=== PATIENT | female | born 1980 | race Caucasian/White ===

== ENCOUNTER 2019-10-07 12:08 | Observation (INO) | payer BC, MEDICAID, SELFPAY ==
[2019-10-07] VITALS (27 sets, daily range): BP systolic 123–125; BP diastolic 79–83; PULSE 72–92; TEMP 36.8; O2SAT 95–100
[2019-10-07 13:17] LABS: Add Urine Microscopic? NO; Appearance Urine Clear (Clear); Bilirubin Urine Negative (Negative); Blood Urine Negative (Negative); Color Urine Yellow (Yellow); Glucose Urine UA Negative (Negative); Ketones Urine Negative (Negative); Leukocyte Esterase Ur Negative LEU/UL (Negative); Nitrate Urine Negative (Negative); Protein Urine Negative (Negative); Specific Grav Ur 1.006 (1.001-1.035); Urobilinogen Urine Negative mg/dL (<2.0)
--- NOTE | 2019-10-07 15:39 | PM.OBTRLD ---
OB - Triage/Final Diagnosis Visit Information Date of evaluation: 10/07/19 Reason for evaluation: decreased movement Evaluation Baseline heart rate: 140 Variability: Moderate (11-25) monitor accelerations: Present monitor decelerations: None Cervical dilation (cm): 3 Laboratory results: Laboratory Tests 10/07/19 13:08 Urine Color Yellow Urine Appearance Clear Urine pH 7.0 Ur Specific [place] 1.006 Urine Protein Negative Urine Glucose (UA) Negative Urine Ketones Negative Ur Blood (Man) Negative Urine Nitrate Negative Urine Bilirubin Negative Urine Urobilinogen Negative Leukocyte Esterase Rfl Negative Vital signs: Vital Signs - 24 hr 10/07/19 12:32 10/07/19 12:34 10/07/19 12:39 Pulse Rate 85 Blood Pressure 124/83 Pulse Oximetry 96 97 10/07/19 12:44 10/07/19 12:49 10/07/19 12:54 Pulse Rate Blood Pressure Pulse Oximetry 95 96 97 10/07/19 12:59 10/07/19 13:00 10/07/19 13:04 Pulse Rate 85 Blood Pressure 124/83 Pulse Oximetry 99 99 10/07/19 13:09 10/07/19 13:14 10/07/19 13:19 Pulse Rate Blood Pressure Pulse Oximetry 99 98 99 10/07/19 13:24 10/07/19 13:29 10/07/19 13:30 Pulse Rate 72 Blood Pressure 125/79 Pulse Oximetry 99 99 10/07/19 13:34 10/07/19 13:39 10/07/19 13:44 Pulse Rate Blood Pressure Pulse Oximetry 100 99 99 10/07/19 13:49 10/07/19 13:54 10/07/19 13:59 Pulse Rate Blood Pressure Pulse Oximetry 98 99 98 10/07/19 14:00 10/07/19 14:04 10/07/19 14:09 Pulse Rate 73 Blood Pressure 123/81 Pulse Oximetry 100 99 10/07/19 14:14 10/07/19 14:19 Pulse Rate Blood Pressure Pulse Oximetry 98 99
--- NOTE | 2019-10-07 15:51 | OBADM ---
This patient, Violet Serrano, admitted to the OB room OB Post 116 for observation. Patient/family oriented to hospital policies and general routines including ID bracelet, bed and alarms, visiting hours, pain management, procedures, bathroom and other care routines, personal items, smoking policy, room service/diet, and visiting hours. Patient/Family are encouraged to report perceived risks to care and to ask questions if they do not understand what they are told or what they should do.
== END 2019-10-07 15:53 | disposition home or self-care (01) ==
PROVIDERS: Admitting Provider Student in an Organized Health Care Education/Training Program; PCP Family Medicine; Visit Provider Student in an Organized Health Care Education/Training Program
DX: O36.8190 Decreased fetal movements, unspecified trimester, not applicable or unspecified (principal); Z3A.00 Weeks of gestation of pregnancy not specified
CPT/HCPCS: 81003; G0378; G0379

== ENCOUNTER 2019-10-18 06:18 | Inpatient (IN) | payer BC, SELFPAY ==
[2019-10-18] VITALS (61 sets, daily range): BP systolic 100–163; BP diastolic 61–136; PULSE 30–195; RESP 16; TEMP 36.8–37.3; O2SAT 81–100; BMI 30.2
[2019-10-18 06:55] LABS: Basophils Percent Auto 0.6 % (0.2-1.2); Eosinophils Percent Auto 0.6 % (0-4.4); Hematocrit 35.4 % (37.0-47.0); Hemoglobin 11.6 g/dL (12.0-15.0); Immature Granulocyte Absolute 0.03 K/mm3 (0.00-0.031); Immature Granulocyte Percent A 0.4 % (0-0.5); Lymphocytes Absolute Auto 1.87 K/mm3 (0.9-3.2); Lymphocytes Percent Auto 26.6 % (18.3-44.2); Mean Corpuscular HGB Conc 32.8 g/dl (32-36); Mean Corpuscular Hemoglobin 27.2 pg (26-34); Mean Corpuscular Volume 83.1 fl (80-100); Mean Platelet Volume 12.1 fl (7.4-10.4); Monocytes Absolute Auto 0.5 K/mm3 (0.1-0.6); Monocytes Percent Auto 7.4 % (2.6-8.5); Neutrophils Absolute Auto 4.5 K/mm3 (1.3-6.7); Neutrophils Percent Auto 64.4 % (45.5-73.1); Platelet Count Result 187 k/mm3 (150-375); Red Blood Count 4.26 M/mm3 (4.2-5.4); Red Cell Distribution Width 12.9 % (11.5-14.5)
--- NOTE | 2019-10-18 07:06 | WPDHPUPDATE1 ---
History and Physical Update Update Date/Time: 10/18/19 07:06 39 yo at 39w3d who presents for elective induction. She denies any contractions, leakage of fluid or vaginal bleeding. She endorses good movement. History and Physical has been reviewed, including an updated exam of the patient. There are NO changes in the patient's condition. Risks, benefits, and alternatives have been discussed and questions answered. Patient agrees to proceed with procedure. A/P 39 yo at 39w3d who presents for elective induction admit to L&D routine admission orders Rh + GBS +, PCN in labor FHT cat 1 continuous EFM plan for pitocin induction
[2019-10-18] MEDS: LACTATED RINGERS 1,000 ML 125 ML IV CONT ×2 (07:14→12:31)
[2019-10-18] MEDS: OXYTOCIN 30 UNITS/NS 500 ML 30 UNITS/500 ML BAG IV CONT ×2 (07:15→15:14)
[2019-10-18] MEDS: AMPICILLIN 2 GM/NS 100 ML 2 GM/100 ML BAG IVPB (07:15)
[2019-10-18 07:56] LABS: Rapid Plasma Reagin Non-Reactive (NonReactive)
--- NOTE | 2019-10-18 08:53 | LDADM ---
This patient, Violet Serrano, was admitted to Labor/Delivery/Recovery 107 on 10/18/19 at 06:18. Plans for labor, pain management and were discussed with patient. Patient/family oriented to hospital policies and general routines including ID bracelet, bed and alarms, visiting hours, pain management, procedures, bathroom and other care routines, personal items, smoking policy, room service/diet and guest tray routines, security routines, and visiting hours. Patient/Family are encouraged to report perceived risks to care and to ask questions if they do not understand what they are told or what they should do. See OBIX for further documentation.
--- NOTE | 2019-10-18 10:43 | PM.OBPNLAB ---
Pain Control Date/time seen: 10/18/19 10:43 Pain control: tolerating well Pelvic Exam Dilation (cm): 2 Effacement (%): 70 station: -3 Amniotic membrane status: Ruptured (clear fluid) Contractions Monitor mode: External Contraction frequency: 3 Contraction pattern: Regular Status status: Category l Assessment and Plan Pitocin rate (mU/min): 14 Assessment: induction ongoing Plan: continuous present management
--- NOTE | 2019-10-18 10:57 | WPDANESEPP ---
Anes - Eval Pre Procedure Procedure: Labor Pain Management Date/Time: 10/18/19 10:57 Surgeon: Aldo Yuen MD Preop Diagnosis: Pain During Labor Pre Op Diagnosis: Induction of labor Patient Data Age: 39 Gender: F Height: 5 ft 10 in Weight: 95.5 kg Last Vital Signs Temp 98.6 F 10/18/19 10:33 Pulse 66 10/18/19 10:46 BP 131/77 10/18/19 10:46 Allergies Allergy/AdvReac Type Severity Reaction Status Date / Time No Known Allergies Allergy Verified 10/07/19 16:04 Home Medications Medication Instructions Recorded Confirmed Type ergocalciferol (vitamin D2) 50,000 unit PO WEEKLY 10/07/19 10/07/19 History [Vitamin D2] sertraline 25 mg PO DAILY 10/07/19 10/07/19 History Laboratory Tests 10/18/19 10/18/19 10/18/19 06:48 06:48 06:48 WBC 7.0 K/mm3 K/mm3 (4.5-10.0) RBC 4.26 M/mm3 M/mm3 (4.2-5.4) Hgb 11.6 g/dL L g/dL (12.0-15.0) Hct 35.4 % L % (37.0-47.0) MCV 83.1 fl fl (80-100) MCH 27.2 pg pg (26-34) MCHC 32.8 g/dl g/dl (32-36) RDW 12.9 % % (11.5-14.5) Plt Count 187 k/mm3 k/mm3 (150-375) MPV 12.1 fl H fl (7.4-10.4) Immature Gran % (Auto) 0.4 % % (0-0.5) Neut % (Auto) 64.4 % % (45.5-73.1) Lymph % (Auto) 26.6 % % (18.3-44.2) [place] % (Auto) 7.4 % % (2.6-8.5) Eos % (Auto) 0.6 % % (0-4.4) Baso % (Auto) 0.6 % % (0.2-1.2) Lymph # (Auto) 1.87 K/mm3 K/mm3 (0.9-3.2) [place] # (Auto) 0.5 K/mm3 K/mm3 (0.1-0.6) Eos # (Auto) 0.0 K/mm3 K/mm3 (0-0.3) Baso # (Auto) 0.0 K/mm3 K/mm3 (0.0-0.1) Abs Immat Gran (auto) 0.03 K/mm3 K/mm3 (0.00-0.031) Absolute Neuts (auto) 4.5 K/mm3 K/mm3 (1.3-6.7) Absolute Nucleated RBC 0.0 K/mm3 K/mm3 (0.0-0.012) Nucleated RBC % 0.0 % % (0.0-0.2) RPR Non-reactive (NonReactive) Blood Type A Positive Antibody Screen Negative : gestational age (edc ) Patient hx anesthesia problems: none Family hx anesthesia problems: none [facility] Past Medical History Medical History Obesity (BMI 30-39.9) Family History Family History (Updated 10/07/19 @ 16:10 by Vicky Small RN) Other No known health problems Social History Social History (Updated 10/18/19 @ 11:01 by [place] CRNA) Smoking status: Current every day smoker Tobacco type: e-cigarettes/vaping Substance use: never Spiritual care concerns: No Exam Day of Procedure 10/18/19 10:57
[2019-10-18] MEDS: AMPICILLIN 1 GM/NS 50 ML 1 GM/50 ML BAG IVPB (11:27)
--- NOTE | 2019-10-18 14:53 | PM.OBPRVD ---
OB - Delivery Note Procedure Procedure: Patient pushed for a spontaneous vaginal delivery. Nuchal cord x1 was noted and reduced on the perineum. The fetus was delivered atraumatically and placed on the maternal abdomen. The cord was clamped and cut after 1 minute of life. The cord was double clamped and cut and a segment of cord was collected for cord gases. Cord blood was collected for blood type and Coomb's testing. The placenta delivered spontaneously and was noted to be intact. The perineum was inspected and there was a 1st degree perineal laceration. The laceration was repaired with 3-0 vicryl in the usual fashion. The uterus was firm and good hemostasis was noted. The patient and fetus were stable in the delivery room. Intrapartal events: None Induction method: per pitocin protocol Delivery augmentation: rupture of membranes Delivery monitor: external FHT Route of delivery: Episiotomy description: None Laceration description: Perineal - 1st Degree Delivery repair: vicryl Specimen: No Estimated blood loss (mL): 250 Anesthesia type: Epidural Disposition: floor () Complications: No immediate complications Narrative: Epidural was ineffective at the time of delivery. Pudendal block was performed with 1% lidocaine prior to pushing. Baby Date of : 10/18/19 Time of : 14:44 Weeks of gestation at delivery: 39 gender: Female Weight (pounds): 7 Weight (ounces): 5 presentation: vertex position: Right Occiput Anterior Placenta delivery description: Spontaneous cord vessel description: Nuchal Cord score one minute: 9 score five minutes: 9
[2019-10-18] MEDS: WITCH HAZEL 40 PADS 1 PAD TOPICAL (16:51)
[2019-10-18] MEDS: BENZOCAINE 20% AER SPR (*SP) 56 GM CAN 1 SPRAY TOPICAL (16:51)
--- NOTE | 2019-10-18 17:09 | PC.NURSE ---
PT arrived on unit via wheelchair accompanied by significant other and infant and taken to room 281. PT oriented to room 281 and surrounding area. PT introductions made and plan of care discussed per post , pain management, breast feeding, daily care activities. Welcome packet reviewed and discussed. PT verbalized understanding of such care.
[2019-10-18] MEDS: IBUPROFEN 600 MG TABLET PO (17:39)
[2019-10-18] MEDS: DOCUSATE SODIUM 100 MG CAPSULE PO (17:40)
[2019-10-18] MEDS: ACETAMINOPHEN 325 MG TABLET 650 MG PO (17:40)
[2019-10-18] MEDS: LANOLIN (LANSINOH) 7.5 GM CREAM 1 APPLIC TOPICAL (17:43)
[2019-10-18] MEDS: SERTRALINE HCL 25 MG TABLET PO (21:31)
[2019-10-19 05:30] LABS: Hematocrit 30.7 % (37.0-47.0)
--- NOTE | 2019-10-19 07:46 | PM.OBPNVD ---
OB - PN: Subj Subjective Date/time seen: 10/19/19 07:46 Patient comments: no complaints, pain well controlled and tolerating diet Myrtle feeding status: exclusively breast feeding Narrative: patient doing well this AM. No complaints. Pain is well controlled. She reports minimal bleeding. She is ambulating and voiding without difficulty. She is tolerating PO. She denies N/V, fever, chills. OB - PN: Obj Data Labs CBC & Chem 7: 10/19/19 05:22 Labs: Laboratory Results - last 24 hr 10/18/19 10/18/19 10/19/19 06:48 06:48 05:22 Hgb 10.0 L Hct 30.7 L RPR Non-reactive Blood Type A Positive Antibody Screen Negative OB - PN A/P Plan day: 1 Plan: routine care Comments: patient doing well H/H stable continue routine care Time Spent With Patient Time: Total time spent is greater than 50% in coordination of care (as documented) at patient's floor/unit and/or counseling patient: Time with patient: less than 15 minutes Review of Systems Review of Systems: All systems reviewed & are unremarkable except as noted in HPI and below Exam Const: General: comfortable and no acute distress Resp: Effort & Inspection: normal respiratory effort Cardio: Rate: regular rate GI: GI Palp: Yes Soft to palpation and No Tenderness to palpation present (GI) Auscultation: normal bowel sounds Other: fundus firm and below umbilicus. Psych: Affect: normal affect
[2019-10-19 07:55] VITALS: BP 121/82; PULSE 72; RESP 16; TEMP 37.4; O2SAT 99
--- NOTE | 2019-10-19 10:00 | PC.NURSE ---
Mother called out for assist. Mother reports she has difficulties and discomfort with feedings. Infant will latch eagerly at times and other times she will not wake or open wide for latch. Consulted with patient, reviewed feeding cues, frequencies, duration of feedings, feeding elimination flow sheet, and signs of adequate intake. Demonstrated stimulation techniques to wake infant for feeding. Assisted with to breast. Reviewed positioning/alignment in cross cradle, holding breast in U hold and guided asymmetrical latch on. Discussed rational fore each. Several attempts before infant was able to latch correctly. Once latched mother wanted to move hand and not hold breast. Reviewed holding breast will assist with maintaining deep latch and increased intake. Mother returned to hold breast. nursed eagerly, with steady draws and occasional swallowing noted. Reviewed signs of a correct latch, effective nursing and suck swallow ratio. Infant was able to maintain latch without discomfort to mother. Nipple care reviewed. Suggested stimulation to keep awake and nursing effectively. Instructed mother to call out for RN assistance if she is unable to latch for feeding or she has discomfort with nursing. Instructed feeding should be initiated three hours from start of last feeding or if feeding cues are noted before. Mother voiced understanding of information shared.
[2019-10-19] MEDS: DOCUSATE SODIUM 100 MG CAPSULE PO (10:43)
[2019-10-19] MEDS: IBUPROFEN 600 MG TABLET PO (10:44)
[2019-10-19] MEDS: MULTIVIT/MIN/PREN/FOL AC/IRON TABLET 1 TAB PO (10:44)
[2019-10-19 18:31] VITALS: BP 129/80; PULSE 65; RESP 18; TEMP 36.6; O2SAT 98
[2019-10-19] MEDS: SERTRALINE HCL 25 MG TABLET PO (21:01)
--- NOTE | 2019-10-20 07:30 | PC.NURSE ---
PT introductions made and plan of care discussed per post , pain management, breast feeding, daily care activities and pending discharge to home. PT verbalized understanding of such care.
--- NOTE | 2019-10-20 08:00 | PM.OBDSVD ---
OB - DS: Summary OB Procedures : None OB Procedures Intrapartum: Spontaneous Vag Delivery OB Procedures: : None Status at Discharge Functional status at discharge: independent ambulation Overall status at discharge: patient is back to baseline Time Spent with Patient Time attestation: Total time spent providing and/or coordinating discharge services: Time spent: Less than 30 minutes Exam Const: General: comfortable and no acute distress Resp: Effort & Inspection: normal respiratory effort Auscultation: clear to auscultation bilaterally Cardio: Rate: regular rate GI: GI Palp: Yes Soft to palpation Auscultation: normal bowel sounds Other: Fundus firm below umbilicus Psych: Appearance: grossly normal Mental Status: mental status grossly normal Affect: normal affect Discharge Plan Discharge Discharging Clinician: Aldo Yuen Patient Disposition: Home, Self-Care Activity: as tolerated and pelvic rest Diet: regular Discharge Instructions: Education: Mom and Baby Guide Given to: Mother Follow-Up: Call your delivering provider's office for an appointment to be seen in: 1 Week Mom and baby should come to the [facility] for the follow-up appointment. Appointment Date/Time: October 22, 2019 at 8:00 am What to expect at your follow-up visit: Blood Pressure Check Call [phone] if you are unable to keep your appointment time. BREAST CARE: 1. Wear a snug supportive bra. 2. For engorgement discomfort: Breast Feeding: A. Apply warm moist washcloths B. Express milk as needed to relieve engorgement C. Wear loose clothing Bottle Feeding: A. May apply ice packs 3. For sore nipples: A. Identify correct latch-on B. Apply warm moist washcloths before and after nursing C. Air dry nipples after nursing D. May apply Lansinoh cream to nipples PERINEAL CARE: 1. Until bleeding stops, use your darian bottle after urinating 2. Change your pad frequently throughout the day 3. You may take sitz baths several times a day (fill your bathtub with warm water and soak for 20 minutes.) Do NOT bathe in the water 4. No tub baths until seen by your physician - You may shower ACTIVITY: 1. Rest as much as possible. 2. Do not exercise or lift anything heavier than your baby (such as laundry or other children.) 3. Avoid stairs or driving as much as possible. 4. Do not put anything into the vagina. No douching, tampons, or sexual activity until seen by physician. NOTIFY PHYSICIAN IF YOU HAVE ANY QUESTIONS OR IF ANY OF THE FOLLOWING SYMPTOMS OCCUR: 1. If your perineum becomes red, swollen, or more painful than what you have experienced in the hospital. 2. If your vaginal bleeding becomes foul smelling. 3. If your vaginal bleeding becomes more heavy than a period or if your bleeding changes from pink to bright red. However, you may pass an occasional walnut-sized clot once or twice for the first week . 4. If you experience a sharp, shooting pain in you calves. 5. If you discover a hard, reddened area on your breast or if you experience flu-like symptoms. 6. Call for temp 100.4 or greater DIET: 1. Eat regular, well-balanced meals. 2. Drink plenty of fluids daily. If , drink to thirst. Patient Instructions: Antibiotic Form Stand Alone Forms: General Discharge Information Follow-up/Referrals: Aldo Yuen MD [Physician] - Discharge Medications: New acetaminophen [Mapap (acetaminophen)] 325 mg Tablet 650 mg PO Q6H PRN (Reason: Mild Pain (1-3) Or Headache) Qty: 30 RF: 0 Dermoplast (with menthol) 20-0.5 % Aerosol 1 spray topical PRN PRN (Reason: Perineal Discomfort) Qty: 1 RF: 0 ibuprofen 600 mg Tablet 600 mg PO Q6H PRN (Reason: Cramping) Qty: 30 RF: 0 [id number]-U-Ppbcnu Cream 1 applic topical PRN PRN (Reason: Sore Nipples) Qty: 1 RF: 0 Cont
[2019-10-20 08:05] VITALS: BP 118/72; PULSE 80; RESP 18; TEMP 36.3
[2019-10-20 10:00] VITALS: PULSE 80; RESP 18; O2SAT 98
--- NOTE | 2019-10-20 10:00 | PC.NURSE ---
PT downloaded video to phone but refused to watch it prior to discharge
[2019-10-20] MEDS: DOCUSATE SODIUM 100 MG CAPSULE PO (10:06)
[2019-10-20] MEDS: ACETAMINOPHEN 325 MG TABLET 650 MG PO (10:07)
[2019-10-20] MEDS: MULTIVIT/MIN/PREN/FOL AC/IRON TABLET 1 TAB PO (10:07)
[2019-10-20] MEDS: IBUPROFEN 600 MG TABLET PO (10:07)
--- NOTE | 2019-10-20 11:00 | PC.NURSE ---
PT received discharge instructions per protocol and verbalized understanding of such care.
--- NOTE | 2019-10-20 11:21 | PC.NURSE ---
PT discharged to home ambulatory accompanied by significant other and and taken to waiting car. Follow up appts confirmed
--- NOTE | 2019-10-20 11:21 | PC.NURSE ---
PT discharged to home ambulatory accompanied by both parents to waiting car. Follow up appts confirmed
[2019-10-22 08:24] VITALS: BP 133/75; PULSE 80; RESP 22
== END 2019-10-20 11:21 | disposition home or self-care (01) | DRG 807 ==
LOC: ANHLDR 06:22 → ANHOB2 17:12
PROVIDERS: Admitting Provider Student in an Organized Health Care Education/Training Program; PCP Family Medicine; Visit Provider Student in an Organized Health Care Education/Training Program
DX: O99.824 Streptococcus B carrier state complicating childbirth (principal); Z37.0 Single live birth; Z3A.39 39 weeks gestation of pregnancy; O70.0 First degree perineal laceration during delivery; O69.81X0 Labor and delivery complicated by cord around neck, without compression, not applicable or unspecified; O99.344 Other mental disorders complicating childbirth; F32.9 Major depressive disorder, single episode, unspecified; O99.62 Diseases of the digestive system complicating childbirth; K21.9 Gastro-esophageal reflux disease without esophagitis; O99.334 Smoking (tobacco) complicating childbirth; F17.290 Nicotine dependence, other tobacco product, uncomplicated
CPT/HCPCS: 36415; 85014; 85018; 85025; 86592; 86850; 86900; 86901; A9270; J0290; J2590; J2795; J7120

== ENCOUNTER 2020-07-04 10:53 | Outpatient (CLI) | payer BC, OTHER, SELFPAY ==
[2020-07-04 11:44] LABS: SARS-CoV-2 Ag Negative (Negative)
[2020-07-04 11:45] LABS: Influenza Control Valid (Valid)
[2020-07-05 19:11] LABS: SARS-CoV-2 RNA PCR Negative
== END 2020-07-04 10:54 | disposition home or self-care (01) ==
LOC: CHSLAB 10:58
PROVIDERS: PCP Family Medicine; Visit Provider Family Medicine
DX: J00 Acute nasopharyngitis [common cold] (principal); Z20.822 Contact with and (suspected) exposure to COVID-19
CPT/HCPCS: 87081; 87426; 87804; 87880; C9803; U0003; U0005

== ENCOUNTER 2021-01-05 16:08 | Outpatient (CLI) | payer OTHER, SELFPAY ==
--- NOTE | ~2021-01-05 | XR_ITS ---
XR lumbar spine 2-3V DATE: 01/05/2021 16:48 INDICATION: Left low back pain for one week TECHNIQUE: AP, lateral, coned lateral lumbosacral views COMPARISON: None FINDINGS: No fracture or bone destruction is evident. The included lower thoracic and lumbar pedicles are intact. There is relative moderately prominent loss of height at the L5-S1 interspace. The lumba r interspaces are well preserved. No spondylolisthesis. The sacroiliac joints are intact. IMPRESSION: Moderately prominent loss of interspace height at L5-S1 Reviewed, dictated and finalized at location A.
== END 2021-01-05 16:09 | disposition home or self-care (01) ==
LOC: CHSIMG 16:10
PROVIDERS: PCP Family Medicine; Visit Provider Family Medicine
DX: M54.16 Radiculopathy, lumbar region (principal)
CPT/HCPCS: 72100

== ENCOUNTER 2021-05-29 14:18 | Outpatient (CLI) | payer OTHER, SELFPAY ==
[2021-05-29 15:18] LABS: SARS-CoV-2 RNA PCR Negative (Negative)
== END 2021-05-29 14:19 | disposition home or self-care (01) ==
LOC: CHSLAB 14:21
PROVIDERS: PCP Family Medicine; Visit Provider Family Medicine
DX: R05.9 Cough, unspecified (principal); Z20.822 Contact with and (suspected) exposure to COVID-19
CPT/HCPCS: C9803; U0003; U0005

== ENCOUNTER 2021-10-11 19:03 | Emergency (ER) | payer OTHER, SELFPAY ==
[2021-10-11 19:32] VITALS: BP 123/82; PULSE 77; RESP 18; TEMP 36.9; O2SAT 99
--- NOTE | 2021-10-11 19:43 | ED.GENADULT ---
HPI - General Adult General Chief complaint: Unspecified Stated complaint: Infection in neck. left side Time Seen by Provider: 10/11/21 19:07 Source: patient and RN notes reviewed Mode of arrival: ambulatory Limitations: no limitations History of Present Illness Onset (ago): day(s) (1) Location: neck Severity: mild Severity scale (1-10): 2 Quality: dull Pain Consistency: constant Relieving factors: none Exacerbating factors: none Associated symptoms: denies other symptoms Treatments prior to arrival: none Related Data Home Medications Medication Instructions Recorded Confirmed sertraline 25 mg tablet 25 mg PO DAILY 10/07/19 10/11/21 amoxicillin 875 mg tablet 1 tablet PO BID 10/11/21 10/11/21 Allergies Allergy/AdvReac Type Severity Reaction Status Date / Time No Known Allergies Allergy Verified 10/11/21 19:29 Review of Systems Review of Systems: All systems reviewed & are unremarkable except as noted in HPI and below Constitutional: Constitutional: Reports no additional constitutional complaints Eyes: Eyes: Reports no additional eye complaints ENT: Reports system reviewed and no additional complaints, except as documented and Reports other (left neck few tender 1 cm diameter swellings.) Cardiovascular: Cardiovascular: Reports no additional cardiovascular complaints Respiratory: Respiratory: Reports no additional respiratory complaints Gastrointestinal: Gastrointestinal: Reports no additional gastrointestinal complaints Genitourinary: Genitourinary: Reports no additional female genitourinary complaints Musculoskeletal: Musculoskeletal: Reports no additional musculoskeletal complaints Integumentary/Breasts: Skin/Breast: Reports system reviewed and no additional complaints, except as docu Neurologic: Reports system reviewed and no additional complaints, except as documented Psychiatric: Psychiatric: Reports no additional psychiatric complaints Endocrine: Endocrine: Reports no additional endocrine complaints Hematologic/Lymphatic: Hematologic/Lymphatic: Reports no additional hematologic/lymphatic complaints Allergic/Immunologic: Allergic/Immunologic: Reports no additional allergic/immunologic complaints PMFSH Past Medical History Medical History Chronic back pain history of lumbar injections, L5S1, last injection May 2018 Lymphadenopathy of left cervical region Obesity (BMI 30-39.9) Family History Family History Other No known health problems Social History Social History Smoking status: Current every day smoker Tobacco type: e-cigarettes/vaping Substance use: never Spiritual care concerns: No Exam Const: General: healthy appearing and no acute distress Nutritional Appearance: well nourished Orientation/consciousness: patient oriented x3 Limitations: no limitations HENMT: Head: normal to inspection Ears: external ears normal, TM's normal bilaterally and EAC's normal General nose exam: Normal external nose present and Normal nares present Face and sinus: normal facial exam and sinuses nontender Mouth: Yes Normal oral and palatal mucosa present and Yes moist mucous membranes Teeth and gingiva: dentition normal Throat: posterior oropharynx normal Eyes: Conjunctivae: conjunctivae normal Pupils: Equal, round and reactive pupils present EOM: EOMs intact bilaterally Neck: Neck: normal visual inspection, no lymphadenopathy, no meningeal signs and lymphadenopathy (minimally tender nodes of the left neck) Chest: Chest palpation & inspection: normal inspection of the chest Resp: Effort & Inspection: normal respiratory effort Auscultation: clear to auscultation bilaterally Cardio: Rate: regular rate Rhythm: regular rhythm GI: GI Palp: Yes Soft to palpation and No Tenderness to palpation present (GI) Auscul
[2021-10-11] MEDS: ACETAMINOPHEN 325 MG TABLET 650 MG PO (20:21)
[2021-10-11] MEDS: LIDOCAINE HCL 1% LOCAL INJ 10 ML VIAL (20:22)
[2021-10-11] MEDS: cefTRIAXone 1 GM VIAL IM (20:22)
[2021-10-11 20:53] VITALS: BP 131/80; PULSE 56; RESP 17; TEMP 36.6; O2SAT 100
== END 2021-10-11 20:56 | disposition home or self-care (01) ==
PROVIDERS: Emergency Provider Emergency Medicine; PCP Family Medicine
DX: R59.9 Enlarged lymph nodes, unspecified (principal)
CPT/HCPCS: 96372; 99283; A9270; J0696

== ENCOUNTER 2021-11-11 13:40 | Emergency (ER) | payer OTHER, SELFPAY ==
--- NOTE | ~2021-11-11 | XR_ITS ---
EXAMINATION: XR chest 1V portable Exam Date/Time: 11/11/2021 14:10 CDT HISTORY: SOB,COUGH,?FEVER,COVID19+ON 11/06/21 Comparison: 03/25/2014. RESULT: Lines, tubes, and devices: None. Lungs and pleura: Clear. Cardiomediastinal silhouette: Stable cardiomediastinal silhouette. Other: No acute osseous or upper abdominal finding. IMPRESSION: No acute cardiopulmonary process. Reviewed, dictated and finalized at location K.
[2021-11-11 13:51] VITALS: BP 120/84; PULSE 63; RESP 20; TEMP 36.9; O2SAT 100
--- NOTE | 2021-11-11 14:06 | ED.URI ---
HPI - URI/Sore Throat General Chief Complaint: Upper Respiratory Infection Stated Complaint: ambulance Time Seen by Provider: 11/11/21 13:56 Source: patient Mode of arrival: EMS Limitations: no limitations History of Present Illness HPI Narrative: Patient was diagnosed with COVID 5 days ago felt right sided rib pain shortness of breath sat down and checked pulse ox which was 90% and she felt lightheaded so called EMS Related Data Home Medications Medication Instructions Recorded Confirmed sertraline 25 mg tablet 25 mg PO DAILY 10/07/19 11/11/21 Allergies Allergy/AdvReac Type Severity Reaction Status Date / Time No Known Allergies Allergy Verified 10/11/21 19:29 Review of Systems Review of Systems: All systems reviewed & are unremarkable except as noted in HPI and below PMFSH Past Medical History Medical History Chronic back pain history of lumbar injections, L5S1, last injection May 2018 Lymphadenopathy of left cervical region Obesity (BMI 30-39.9) Family History Family History Other No known health problems Social History Social History Smoking status: Current every day smoker Tobacco type: e-cigarettes/vaping Substance use: never Spiritual care concerns: No Exam Const: General: no acute distress and alert Nutritional Appearance: well nourished Orientation/consciousness: patient oriented x3 Limitations: no limitations HENMT: Head: normal to inspection Ears: external ears normal General nose exam: Normal external nose present Face and sinus: normal facial exam Mouth: Yes Normal oral and palatal mucosa present, Yes lip normal and Yes moist mucous membranes Teeth and gingiva: dentition normal Throat: posterior oropharynx normal Eyes: Conjunctivae: conjunctivae normal Pupils: Equal, round and reactive pupils present EOM: EOMs intact bilaterally Direct Ophthalmoscopy: no photophobia Neck: Neck: normal visual inspection Chest: Chest palpation & inspection: normal inspection of the chest Resp: Effort & Inspection: normal respiratory effort Auscultation: clear to auscultation bilaterally Cardio: Rate: regular rate Rhythm: regular rhythm GI: GI Palp: Yes Soft to palpation Auscultation: normal bowel sounds Back/Spine/Pelvis: Back: no CVA tenderness Skin: General skin exam: normal color Neuro: General: patient oriented x3, moves all extremities, no meningeal signs and CN's II-XI intact bilaterally Cranial nerves: Yes Nystagmus not present Speech: normal speech Gait exam (Neuro): Normal gait present Extrem: General: normal to inspection Psych: Mental Status: mental status grossly normal Course Vital Signs Vital signs: Vital Signs Temperature 36.9 C 11/11/21 13:51 Pulse Rate 63 11/11/21 13:51 Respiratory Rate 20 11/11/21 13:51 Blood Pressure 120/84 11/11/21 13:51 Pulse Oximetry 100 11/11/21 13:51 Oxygen Delivery Room Air 11/11/21 13:51 Temperature 36.9 C 11/11/21 13:51 Pulse Rate 63 11/11/21 13:51 Respiratory Rate 20 11/11/21 13:51 Blood Pressure 120/84 11/11/21 13:51 Pulse Oximetry 100 11/11/21 13:51 Oxygen Delivery Room Air 11/11/21 13:51 Discharge Plan Discharge Clinical Impression: COVID-19, Intercostal muscle strain Patient Disposition: Home, Self-Care Condition: Stable Instructions: Antibiotic Form Additional Instructions: for the intercostal strain please alternate Tylenol with ibuprofen every 4-6 hours for the 1st 3 days apply ice to the affected area for 20 minutes 3 times daily after 3 days please apply ice for 20 minutes then heat for 20 minutes 3 times daily Prescriptions: No Action sertraline 25 mg tablet 25 mg PO DAILY Follow-up/Referrals: Lorne Farr MD [Primary Care Provider] - Time of Disposition: 16:00
[2021-11-11 14:48] LABS: Alanine Aminotransferase 32 U/L (14-59); Albumin Level 3.7 g/dL (3.4-5.0); Alkaline Phosphatase 37 U/L (46-116); Anion Gap 9 mmol/L (8-16); Aspartate Amino Transferase 20 U/L (15-37); Bilirubin,Total 0.2 mg/dL (0.00-1.00); Blood Urea Nitrogen 7 mg/dL (7-18); Calcium 8.3 mg/dL (8.5-10.1); Carbon Dioxide 26 mmol/L (21-32); Chloride 109 mmol/L (98-108); Estimated Glomerular Filt Rate > 60; Glucose 101 mg/dL (70-99); Osmolality Calculated 296 mOsm/kg (285-295); Potassium 3.5 mmol/L (3.5-5.1); Sodium 144 mmol/L (136-145); Total Protein 6.9 g/dL (6.4-8.2)
[2021-11-11] MEDS: SODIUM CHLORIDE 0.9% IV 1,000 ML 999 ML IV CONT (15:09)
--- NOTE | 2021-11-11 15:11 | PC.NURSE ---
pt complaint of random sharp pain to underneath right breast
[2021-11-11 15:45] LABS: SARS-CoV-2 RNA PCR Positive (Negative)
--- NOTE | 2021-11-11 15:53 | PC.NURSE ---
noted alarm sounding for oxygen level , lab staff noted pt removing finger probe and place under leg. pt then calls for low oxygen level. finger probe reapplied. sapo2 at 98 %, again pt ringing call [place] , sapo2 states 70% when reapplied to another finger per staff. sapo2 at 100%. have observed vital signs for 1 hour and sapo2 has been 95%-100%, no respiratory distress noted.
[2021-11-11 16:10] VITALS: BP 122/83; PULSE 58; RESP 20; TEMP 36.6; O2SAT 100
== END 2021-11-11 16:25 | disposition home or self-care (01) ==
PROVIDERS: PCP Family Medicine
DX: U07.1 COVID-19 (principal); S29.011A Strain of muscle and tendon of front wall of thorax, initial encounter
CPT/HCPCS: 36415; 71045; 80053; 96360; 99283; C9803; J7030; U0003; U0005

== ENCOUNTER 2022-01-13 13:07 | Outpatient (CLI) | payer OTHER, SELFPAY ==
--- NOTE | ~2022-01-13 | XR_ITS ---
EXAMINATION: XR chest 2V Exam Date/Time: 01/13/2022 13:30 CDT HISTORY: CHEST PAIN 2 days, pt vapes Comparison: 11/11/2021. RESULT: Lines, tubes, and devices: None. Lungs and pleura: Clear. Cardiomediastinal silhouette: Stable. Other: No acute osseous or upper abdominal finding. IMPRESSION: No acute cardiopulmonary process. Reviewed, dictated and finalized at location K.
[2022-01-13 13:25] LABS: Basophils Absolute Auto 0.03 K/mm3 (0.00-0.10); Basophils Percent Auto 0.6 % (0.0-1.0); Eosinophils Absolute Auto 0.07 K/mm3 (0.02-0.50); Eosinophils Percent Auto 1.4 % (1.0-6.0); Hematocrit 36.2 % (35.0-49.0); Hemoglobin 11.9 g/dL (12.0-15.0); Immature Granulocyte Absolute 0.01 K/mm3 (0.00-0.00); Immature Granulocyte Percent A 0.2 % (0.0-0.0); Lymphocytes Absolute Auto 2.28 K/mm3 (1.10-4.50); Lymphocytes Percent Auto 45.5 % (18.0-42.0); Mean Corpuscular HGB Conc 32.9 g/dL (32.0-36.0); Mean Corpuscular Volume 88.1 fL (78.0-102.0); Mean Platelet Volume 10.3 fl (9.2-11.8); Monocytes Absolute Auto 0.28 K/mm3 (0.10-0.90); Monocytes Percent Auto 5.6 % (2.0-11.0); Neutrophils Absolute Auto 2.3 K/mm3 (1.7-7.2); Neutrophils Percent Auto 46.7 % (50.0-70.0); Platelet Count Result 226 K/mm3 (150-420); Red Blood Count 4.11 M/mm3 (4.20-5.40); Red Cell Distribution Width 12.9 % (11.6-14.4)
[2022-01-13 13:50] LABS: Alanine Aminotransferase 11 U/L (14-59); Albumin Level 4.1 g/dL (3.4-5.0); Alkaline Phosphatase 43 U/L (46-116); Anion Gap 8 mmol/L (8-16); Aspartate Amino Transferase < 10 U/L (15-37); Bilirubin,Total 0.3 mg/dL (0.00-1.00); Blood Urea Nitrogen 6 mg/dL (7-18); Calcium 8.7 mg/dL (8.5-10.1); Carbon Dioxide 26 mmol/L (21-32); Chloride 106 mmol/L (98-108); Creatine Kinase 60 U/L (26-192); Estimated Glomerular Filt Rate > 60; Glucose 90 mg/dL (70-99); Osmolality Calculated 287 mOsm/kg (285-295); Sodium 140 mmol/L (136-145); Thyroid Stimulating Hormone 0.81 uIU/mL (0.36-3.74)
[2022-01-13 14:06] LABS: Troponin I 5.9 ng/L (0.00-60.4)
== END 2022-01-13 13:08 | disposition home or self-care (01) ==
LOC: CHSLAB 13:12
PROVIDERS: PCP Family Medicine; Visit Provider Family Medicine
DX: R07.9 Chest pain, unspecified (principal); R42 Dizziness and giddiness
CPT/HCPCS: 36415; 71046; 80053; 82550; 82553; 84443; 84484; 85025

== ENCOUNTER 2022-02-17 08:13 | Outpatient (CLI) | payer OTHER, SELFPAY ==
--- NOTE | ~2022-02-17 | MMUS_ITS ---
EXAMINATION: MM diagnostic rena BI w edson, US breast BI limited HISTORY: Palpable lump in the lower inner quadrant of the right breast TECHNIQUE: Craniocaudal, mediolateral, and mediolateral oblique 3-D tomosynthesis images of the breas ts were performed and synthetic 2-D images were generated. CAD analysis was submitted and interpreted . High resolution limited bilateral breast ultrasound was performed. COMPARISON: None, baseline BREAST PARENCHYMAL COMPOSITION: The breasts are heterogeneously dense, which may obscure small masses . FINDINGS: MAMMOGRAPHIC FINDINGS: No mammographic correlate is identified for the reported palpable abnormality of concern in the right breast. An asymmetry seen in the lower inner left breast on the craniocaudal view which does not def initely persist with spot compression. No suspicious mass, calcification, or architectural distortion are identified in either breast. ULTRASOUND: There is no evidence of focal abnormal solid or cystic mass in the vicinity of the reported palpable abnormality of concern in the right breast. No sonographic correlate is identified for the left breas t asymmetry. IMPRESSION: 1. No specific mammographic or sonographic correlate is identified for the reported palpable abnormal ity of concern. Further evaluation at this time should be based on clinical assessment. Continued fol low-up physical examination is recommended. 2. Recommend routine screening mammography in one year. BI-RADS Category 1: Negative Reviewed, dictated and finalized at location A. IMPRESSION: 1. No specific mammographic or sonographic correlate is identified for the repo rted palpable abnormality of concern. Further evaluation at this time should be based on clinical assessment. Continued follow-up physical examination is antonino mmended. 2. Recommend routine screening mammography in one year. BI-RADS Category 1: Negative
== END 2022-02-17 08:14 | disposition home or self-care (01) ==
PROVIDERS: PCP Family Medicine; Visit Provider Family Medicine
DX: N63.13 Unspecified lump in the right breast, lower outer quadrant (principal)
CPT/HCPCS: 76642; 77062; 77066; G0279

== ENCOUNTER 2022-05-03 10:32 | Outpatient (CLI) | payer OTHER, SELFPAY ==
[2022-05-03 10:46] LABS: Basophils Absolute Auto 0.05 K/mm3 (0.00-0.10); Basophils Percent Auto 0.8 % (0.0-1.0); Eosinophils Absolute Auto 0.09 K/mm3 (0.02-0.50); Eosinophils Percent Auto 1.4 % (1.0-6.0); Hematocrit 39.1 % (35.0-49.0); Hemoglobin 12.8 g/dL (12.0-15.0); Immature Granulocyte Absolute 0.02 K/mm3 (0.00-0.00); Immature Granulocyte Percent A 0.3 % (0.0-0.0); Lymphocytes Absolute Auto 2.16 K/mm3 (1.10-4.50); Lymphocytes Percent Auto 34.6 % (18.0-42.0); Mean Corpuscular HGB Conc 32.7 g/dL (32.0-36.0); Mean Corpuscular Hemoglobin 28.3 pg (27.0-31.0); Mean Corpuscular Volume 86.3 fL (78.0-102.0); Mean Platelet Volume 10.4 fl (9.2-11.8); Monocytes Absolute Auto 0.35 K/mm3 (0.10-0.90); Monocytes Percent Auto 5.6 % (2.0-11.0); Neutrophils Absolute Auto 3.6 K/mm3 (1.7-7.2); Neutrophils Percent Auto 57.3 % (50.0-70.0); Platelet Count Result 223 K/mm3 (150-420); Red Blood Count 4.53 M/mm3 (4.20-5.40); Red Cell Distribution Width 12.7 % (11.6-14.4); White Blood Count 6.2 K/mm3 (4.8-10.8)
[2022-05-03 10:59] LABS: Monoscreen Negative (Negative)
[2022-05-03 11:00] LABS: Negative Monotest Control Negative (Negative); Positive Monotest Control Positive (Positive)
[2022-05-03 11:15] LABS: Strep Group A RT-PCR NOT DETECTED (Negative)
[2022-05-03 11:23] LABS: Influenza A QL RT-PCR Negative (Negative); Influenza B QL RT-PCR Negative (Negative); SARS-CoV-2 RNA PCR Negative (Negative)
== END 2022-05-03 10:33 | disposition home or self-care (01) ==
LOC: CHSLAB 10:34
PROVIDERS: PCP Family Medicine; Visit Provider Family Medicine
DX: J06.9 Acute upper respiratory infection, unspecified (principal)
CPT/HCPCS: 36415; 85025; 86308; 87636; 87651

== ENCOUNTER 2022-06-07 11:15 | Outpatient (CLI) | payer OTHER, MEDICAID, SELFPAY ==
--- NOTE | ~2022-06-07 | XR_ITS ---
Lumbosacral Spine: AP and lateral views Clinical History: Pain Findings: The normal lordotic curve is maintained. The vertebral bodies and posterior elements are i ntact. The intervertebral disc spaces are preserved. The sacroiliac joints are normally outlined. Impression: No significant abnormality. Reviewed, dictated and finalized at [facility]. IR ORDER CLERK Impression: No significant abnormality.
== END 2022-06-07 11:16 | disposition home or self-care (01) ==
LOC: CHSIMG 11:16
PROVIDERS: PCP Family Medicine; Visit Provider Family Medicine
DX: M54.16 Radiculopathy, lumbar region (principal)
CPT/HCPCS: 72100

== ENCOUNTER 2022-06-14 15:16 | Emergency (ER) | payer OTHER, MEDICAID, SELFPAY ==
[2022-06-14] VITALS (8 sets, daily range): BP systolic 107–118; BP diastolic 60–89; PULSE 75–82; RESP 16–18; TEMP 36.4; O2SAT 97–100
--- NOTE | 2022-06-14 15:31 | ED.SYNCOPE ---
HPI - Syncope General Chief Complaint: Syncope Stated Complaint: Dizziness Time Seen by Provider: 06/14/22 15:30 Source: patient Mode of arrival: ambulatory Limitations: no limitations History of Present Illness HPI narrative: 89-year-old female with a history of chronic low back pain, A1 S, had COVID in October of 2021. Subsequently the patient has had multiple syncopal spells. The spells are by months. Today she had 5 syncopal spells. She was resting when she developed -- lightheadedness with blurred vision. no chest pain or shortness of breath. No nausea / vomiting. No incontinence. The patient had 5 such episodes today. MD complaint: felt faint Onset (ago): day(s) ( Started at [employer]) Prodromal symptoms: none Witnessed: No Context: at rest Injuries sustained associated with event: none Current symptoms: none Treatments prior to arrival: none Related Data Home Medications Medication Instructions Recorded Confirmed sertraline 25 mg tablet 25 mg PO DAILY 10/07/19 06/14/22 Allergies Allergy/AdvReac Type Severity Reaction Status Date / Time No Known Allergies Allergy Verified 06/14/22 16:04 Review of Systems Review of Systems: All systems reviewed & are unremarkable except as noted in HPI and below Constitutional: Constitutional: Reports as per HPI and Reports no additional constitutional complaints Eyes: Eyes: Reports as per HPI and Reports no additional eye complaints ENT: Reports system reviewed and no additional complaints, except as documented and Reports as per HPI Cardiovascular: Cardiovascular: Reports as per HPI and Reports no additional cardiovascular complaints Comments: No chest pain or palpitation. Respiratory: Respiratory: Reports as per HPI and Reports no additional respiratory complaints Gastrointestinal: Gastrointestinal: Reports as per HPI and Reports no additional gastrointestinal complaints Genitourinary: Genitourinary: Reports no additional female genitourinary complaints and Reports as per HPI Musculoskeletal: Musculoskeletal: Reports no additional musculoskeletal complaints and Reports as per HPI Integumentary/Breasts: Skin/Breast: Reports system reviewed and no additional complaints, except as docu and Reports as per HPI Neurologic: Reports system reviewed and no additional complaints, except as documented and Reports as per HPI Psychiatric: Psychiatric: Reports no additional psychiatric complaints and Reports as per HPI Endocrine: Endocrine: Reports no additional endocrine complaints and Reports as per HPI Hematologic/Lymphatic: Hematologic/Lymphatic: Reports no additional hematologic/lymphatic complaints and Reports as per HPI Allergic/Immunologic: Allergic/Immunologic: Reports no additional allergic/immunologic complaints and Reports as per HPI PMFSH Past Medical History Medical History Chronic back pain history of lumbar injections, L5S1, last injection May 2018 Lymphadenopathy of left cervical region Obesity (BMI 30-39.9) Family History Family History Other No known health problems Social History Social History Smoking status: Current every day smoker Tobacco type: e-cigarettes/vaping Substance use: never Spiritual care concerns: No Exam Narrative: Patient is not orthostatic. Const: General: no acute distress Nutritional Appearance: thin Orientation/consciousness: patient oriented x3 Limitations: no limitations HENMT: Head: normal to inspection Ears: external ears normal Face/Nose/Sinus: Normal external nose present Face and sinus: normal facial exam Mouth: Yes Normal oral and palatal mucosa present Throat: posterior oropharynx normal Eyes: Conjunctivae: conjunctivae normal Pupils: Equal, round and reactive pupils present EOM: EOMs intact bi
--- NOTE | 2022-06-14 15:51 | ECG_ITS ---
Measurements Intervals [place] Rate: 69 P: 75 ME: 149 QRS: 68 QRSD: 96 T: 77 QT: 400 QTc: 429 Interpretive Statements SINUS RHYTHM BASELINE ARTIFACT- I, II, III NORMAL ECG NO PREVIOUS ECG AVAILABLE FOR COMPARISON Electronically Signed On 06-14-2022 16:13:03 ASSOCIATE ACCOUNT MANAGER by Amaury Sims D.O.
[2022-06-14 16:06] LABS: Add Urine Microscopic? NO; Appearance Urine Clear (Clear); Bilirubin Urine Negative (Negative); Blood Urine Negative (Negative); Color Urine Light Yellow (Yellow); Glucose Urine UA Negative (Negative); Ketones Urine Negative (Negative); Leukocyte Esterase Ur Negative LEU/UL (Negative); Nitrate Urine Negative (Negative); Pregnancy On Board Control Positive; Protein Urine Negative (Negative); Urine Pregnancy Test Negative; Urobilinogen Urine 0.2 mg/dL (0.2-1.0)
[2022-06-14 16:33] LABS: Basophils Absolute Auto 0.08 K/mm3 (0.00-0.10); Basophils Percent Auto 1.1 % (0.0-1.0); Eosinophils Absolute Auto 0.11 K/mm3 (0.02-0.50); Eosinophils Percent Auto 1.6 % (1.0-6.0); Hematocrit 36.9 % (35.0-49.0); Hemoglobin 12.1 g/dL (12.0-15.0); Immature Granulocyte Absolute 0.02 K/mm3 (0.00-0.00); Immature Granulocyte Percent A 0.3 % (0.0-0.0); Lymphocytes Absolute Auto 1.95 K/mm3 (1.10-4.50); Lymphocytes Percent Auto 27.6 % (18.0-42.0); Mean Corpuscular HGB Conc 32.8 g/dL (32.0-36.0); Mean Corpuscular Hemoglobin 28.2 pg (27.0-31.0); Mean Platelet Volume 10.7 fl (9.2-11.8); Monocytes Absolute Auto 0.48 K/mm3 (0.10-0.90); Monocytes Percent Auto 6.8 % (2.0-11.0); Neutrophils Absolute Auto 4.4 K/mm3 (1.7-7.2); Neutrophils Percent Auto 62.6 % (50.0-70.0); Platelet Count Result 274 K/mm3 (150-420); Red Blood Count 4.29 M/mm3 (4.20-5.40); Red Cell Distribution Width 12.8 % (11.6-14.4); White Blood Count 7.1 K/mm3 (4.8-10.8)
[2022-06-14 16:43] LABS: Prothrombin Time 10.9 Seconds (9.50-12.10)
[2022-06-14 16:54] LABS: Lactic Acid Reflex 1.2 mmol/L (0.4-2.0)
[2022-06-14 16:58] LABS: Alanine Aminotransferase 13 U/L (14-59); Albumin Level 3.8 g/dL (3.4-5.0); Alkaline Phosphatase 41 U/L (46-116); Anion Gap 10 mmol/L (8-16); Blood Urea Nitrogen 7 mg/dL (7-18); Calcium 8.1 mg/dL (8.5-10.1); Carbon Dioxide 27 mmol/L (21-32); Chloride 109 mmol/L (98-108); Estimated Glomerular Filt Rate > 60; Glucose 100 mg/dL (70-99); Osmolality Calculated 300 mOsm/kg (285-295); Potassium 3.4 mmol/L (3.5-5.1); Sodium 146 mmol/L (136-145); Thyroid Stimulating Hormone 0.81 uIU/mL (0.36-3.74); Total Protein 6.6 g/dL (6.4-8.2)
[2022-06-14 17:12] LABS: Aspartate Amino Transferase < 10 U/L (15-37); Bilirubin,Total 0.2 mg/dL (0.00-1.00)
[2022-06-14] MEDS: LACTATED RINGERS 500 ML 999 ML IV CONT (17:19)
== END 2022-06-14 17:52 | disposition home or self-care (01) ==
PROVIDERS: Emergency Provider Internal Medicine Critical Care Medicine; PCP Family Medicine
DX: R55 Syncope and collapse (principal); F17.290 Nicotine dependence, other tobacco product, uncomplicated
CPT/HCPCS: 36415; 80053; 81003; 81025; 83605; 84443; 84484; 85025; 85610; 93005; 96360; 99284; J7120

== ENCOUNTER 2022-06-15 11:44 | Outpatient (CLI) | payer OTHER, MEDICAID, SELFPAY ==
[2022-06-15 12:45] LABS: Alanine Aminotransferase 21 U/L (14-59); Alkaline Phosphatase 42 U/L (46-116); Anion Gap 7 mmol/L (8-16); Aspartate Amino Transferase 10 U/L (15-37); Bilirubin,Total 0.4 mg/dL (0.00-1.00); Blood Urea Nitrogen 7 mg/dL (7-18); Calcium 8.6 mg/dL (8.5-10.1); Carbon Dioxide 29 mmol/L (21-32); Chloride 107 mmol/L (98-108); Estimated Glomerular Filt Rate > 60; Glucose 93 mg/dL (70-99); Magnesium 2.1 mg/dL (1.8-2.4); Osmolality Calculated 294 mOsm/kg (285-295); Potassium 4.5 mmol/L (3.5-5.1); Sodium 143 mmol/L (136-145); Total Protein 7.3 g/dL (6.4-8.2)
== END 2022-06-15 11:45 | disposition home or self-care (01) ==
LOC: CHSLAB 11:46
PROVIDERS: PCP Family Medicine; Visit Provider Family Medicine
DX: R55 Syncope and collapse (principal)
CPT/HCPCS: 36415; 80053; 83735

== ENCOUNTER 2022-06-16 10:54 | Outpatient (CLI) | payer OTHER, MEDICAID, SELFPAY ==
--- NOTE | 2022-06-17 15:01 | WPDHOLTEREM ---
Holter/Event Monitor Holter/Event Monitor Date of procedure: 06/16/22 Holter/Event Procedure: 24 Hr Holter Monitor Indications: Syncope Conclusion: 1. 24 hour holter monitor on 06/16/22. 2. Underlying rhythm is sinus rhythm with sinus arrhythmia. HR range 51-133 bpm; average HR 83 bpm. 3. There are 5 premature supraventricular complexes. No supraventricular tachycardia. 4. There is 1 premature ventricular complex. No ventricular tachycardia. 5. No sinoatrial or atrioventricular blocks. No significant pauses greater than 2 seconds. 6. No symptoms available for correlation.
== END 2022-06-16 10:55 | disposition home or self-care (01) ==
LOC: CHSCARD 10:57
PROVIDERS: PCP Family Medicine; Visit Provider Family Medicine
DX: R00.2 Palpitations (principal); R55 Syncope and collapse
CPT/HCPCS: 93225; 93226

== ENCOUNTER 2022-06-21 10:45 | Outpatient (RCR) | payer OTHER, MEDICAID, SELFPAY ==
--- NOTE | 2022-06-21 11:36 | PTOPEVAL1 ---
Assessment and note entered by Miller Steele Evaluation Information Assessment Status Evaluation Diagnosis BPPV Onset 10/14/21 Subjective Information Pt. reports that she recently went to the doctor due to noticed dips in her HR and episodes of blacking. Pt. reports that she has fallen about 5 times in the past 6 months. She reports that she has a pulse oximeter at home and monitors her HR. She reports that her HR is in the 50's. She states that she BP has been good. She reports that she does have a dysrhthmia that was diagnosed in her 20's, but has not been a concern. She has noticed some dizziness with turning her head to the right and tilting her head back. She reports that she has dizzy episodes daily with turning to the right. She reports that her goal is to get rid of her dizziness. Reported Pain Level Pain Score 0: Self Report Assessment PT Clinical Summary Pt. enters the clinic with a medical diagnosis of BPPV. She currently presents with positive indication of right side involvement. Continued skilled PT is indicated in order to continue to decrease symptoms of dizziness to allow for improved IADL performance. Plan of Care Interventions Neuro Re-education,Patient/Caregiver Educati, Therapeutic Activities,Therapeutic Exercise,Self- Care/Home Management PT Services Indicated Yes Treatment Frequency and 2 additonal treatment session over 2 weeks Duration These treatments will address the objective and functional deficits as defined above. The patient will be advanced safely and appropriately in order for the patient to progress towards his/her prior level of function. Additional exercises will be introduced and as well as a comprehensive home exercise program upon discharge, if needed, ?to ensure carryover of functional gains achieved in the clinic. This treatment plan has been reviewed and agreement upon by the patient.
== END 2022-06-23 17:00 | disposition home or self-care (01) ==
LOC: CHSPT 10:45
PROVIDERS: PCP Family Medicine; Visit Provider Family Medicine
DX: H81.11 Benign paroxysmal vertigo, right ear (principal)
CPT/HCPCS: 97112; 97161

== ENCOUNTER 2022-06-23 09:50 | Outpatient (CLI) | payer OTHER, MEDICAID, SELFPAY ==
--- NOTE | 2022-07-23 14:25 | P.PCNHOL_ITS ---
Holter/Event Monitor Holter/Event Monitor Date of procedure: 06/23/22 Holter/Event Procedure: Event Monitor Indications: Syncope Conclusion: 1. 26 days event monitor between 06/23/22-07/22/22. There are 42 available herr smissions for analysis. 2. Underlying rhythm is sinus rhythm. HR range 50-136 bpm; average HR 82 bpm. 3. There are occasional premature supraventricular complexes with total burden of <1%. No supraventricular tachycardia. 4. No premature ventricular complexes. No ventricular tachycardia. 5. No significant pauses greater than 2 seconds. 6. Patient reports 9 episodes of symptoms of lightheadedness, heart racing, skipped beat and symptom other than listed which demonstrate sinus rhythm, HR range 74-133 bpm and 1 episode with sinus arrhythmia.
== END 2022-06-23 09:51 | disposition home or self-care (01) ==
PROVIDERS: PCP Family Medicine; Visit Provider Family Medicine
DX: R55 Syncope and collapse (principal)
CPT/HCPCS: 93270

== ENCOUNTER 2022-06-24 12:22 | Emergency (ER) | payer OTHER, MEDICAID, SELFPAY ==
[2022-06-24 12:24] VITALS: BP 131/90; PULSE 81; RESP 18; TEMP 36.6; O2SAT 100
--- NOTE | 2022-06-24 12:47 | ECG_ITS ---
Measurements Intervals [place] Rate: 92 P: 74 NV: 141 QRS: 74 QRSD: 95 T: 81 QT: 374 QTc: 463 Interpretive Statements SINUS RHYTHM NONSPECIFIC ST & T-WAVE ABNORMALITY BORDERLINE ECG NO PREVIOUS ECG AVAILABLE FOR COMPARISON Electronically Signed On 06-24-2022 14:44:55 PARTS FACILITATOR by Chava George M.D.
[2022-06-24 13:28] LABS: Basophils Absolute Auto 0.04 K/mm3 (0.00-0.10); Basophils Percent Auto 0.5 % (0.0-1.0); Eosinophils Absolute Auto 0.03 K/mm3 (0.02-0.50); Eosinophils Percent Auto 0.4 % (1.0-6.0); Hematocrit 38.6 % (35.0-49.0); Hemoglobin 12.6 g/dL (12.0-15.0); Immature Granulocyte Absolute 0.02 K/mm3 (0.00-0.00); Immature Granulocyte Percent A 0.3 % (0.0-0.0); Lymphocytes Percent Auto 21.2 % (18.0-42.0); Mean Corpuscular HGB Conc 32.6 g/dL (32.0-36.0); Mean Corpuscular Hemoglobin 27.9 pg (27.0-31.0); Mean Corpuscular Volume 85.4 fL (78.0-102.0); Monocytes Percent Auto 5.3 % (2.0-11.0); Neutrophils Absolute Auto 5.5 K/mm3 (1.7-7.2); Neutrophils Percent Auto 72.3 % (50.0-70.0); Platelet Count Result 219 K/mm3 (150-420); Red Blood Count 4.52 M/mm3 (4.20-5.40); Red Cell Distribution Width 13.1 % (11.6-14.4); White Blood Count 7.6 K/mm3 (4.8-10.8)
[2022-06-24] MEDS: ALPRAZolam (*CRX) 0.5 MG TABLET PO (13:29)
[2022-06-24 13:54] LABS: Alanine Aminotransferase 16 U/L (14-59); Alkaline Phosphatase 39 U/L (46-116); Anion Gap 9 mmol/L (8-16); Aspartate Amino Transferase 12 U/L (15-37); Bilirubin,Total 0.3 mg/dL (0.00-1.00); Blood Urea Nitrogen 7 mg/dL (7-18); Calcium 8.2 mg/dL (8.5-10.1); Carbon Dioxide 25 mmol/L (21-32); Chloride 108 mmol/L (98-108); Estimated CRCL calculation 114 ml/min; Estimated Glomerular Filt Rate > 60; Glucose 95 mg/dL (70-99); Osmolality Calculated 292 mOsm/kg (285-295); Sodium 142 mmol/L (136-145); Total Protein 7.1 g/dL (6.4-8.2)
[2022-06-24 14:00] LABS: Thyroid Stimulating Hormone 1.05 uIU/mL (0.36-3.74)
--- NOTE | 2022-06-24 14:54 | ED.DIZZY ---
HPI - Dizziness General Chief Complaint: Dizziness Stated Complaint: lightheaded Time Seen by Provider: 06/24/22 12:27 Source: patient and family Mode of arrival: EMS Limitations: no limitations History of Present Illness HPI Narrative: This is a 41-year-old female with no significant past medical history was seen by her primary care physician and and helped up to a Holter monitor, the patient earlier today was having some dizziness and felt flushed and pressed her Holter monitor and called EMS. Currently there is no chest pain no shortness of breath no fever chills the patient does feel anxious with no palpitations no abdominal pain no flank pain. MD elicited complaint: dizziness and lightheadedness Onset (ago): day(s) Timing: gradual onset Severity: mild Related Data Home Medications Medication Instructions Recorded Confirmed sertraline 25 mg tablet 25 mg PO DAILY 10/07/19 06/24/22 Allergies Allergy/AdvReac Type Severity Reaction Status Date / Time No Known Allergies Allergy Verified 06/24/22 12:27 Review of Systems Review of Systems: All systems reviewed & are unremarkable except as noted in HPI and below PMFSH Past Medical History Medical History Chronic back pain history of lumbar injections, L5S1, last injection May 2018 Lymphadenopathy of left cervical region Obesity (BMI 30-39.9) Family History Family History Other No known health problems Social History Social History Smoking status: Current every day smoker Tobacco type: e-cigarettes/vaping Substance use: never Spiritual care concerns: No Exam Const: General: healthy appearing Nutritional Appearance: well nourished Orientation/consciousness: patient oriented x3 Limitations: no limitations HENMT: Head: normal to inspection Ears: TM's normal bilaterally Face/Nose/Sinus: Normal external nose present Face and sinus: normal facial exam Mouth: Yes Normal oral and palatal mucosa present Teeth and gingiva: dentition normal Eyes: Conjunctivae: conjunctivae normal Pupils: Equal, round and reactive pupils present EOM: EOMs intact bilaterally Neck: Neck: normal visual inspection, no lymphadenopathy and no meningeal signs Chest: Chest palpation & inspection: normal inspection of the chest Resp: Effort & Inspection: normal respiratory effort Auscultation: clear to auscultation bilaterally Cardio: Rate: regular rate Rhythm: regular rhythm GI: Auscultation: normal bowel sounds Urinary Catheter: Urinary Catheter: patent and draining Back/Spine/Pelvis: Back: no CVA tenderness Skin: General skin exam: normal color Rashes: no rashes Neuro: General: patient oriented x3 and moves all extremities Cranial nerves: Yes Nystagmus not present Speech: normal speech Extrem: General: normal to inspection Course Course Emergency Course: Patient had a Holter monitor that was printed and reviewed which showed that it was sinus rhythm EKG performed here shows sinus rhythm the patient did receive a dose of 0.5 a Xanax and her symptoms had improved labs reviewed with patient. Vital Signs Vital signs: Vital Signs Temperature 36.6 C 06/24/22 12:24 Pulse Rate 81 06/24/22 12:24 Respiratory Rate 18 06/24/22 12:24 Blood Pressure 131/90 06/24/22 12:24 Pulse Oximetry 100 06/24/22 12:24 Oxygen Delivery Room Air 06/24/22 12:24 Temperature 36.6 C 06/24/22 12:24 Pulse Rate 81 06/24/22 12:24 Respiratory Rate 18 06/24/22 12:24 Blood Pressure 131/90 06/24/22 12:24 Pulse Oximetry 100 06/24/22 12:24 Oxygen Delivery Room Air 06/24/22 12:24 MDM - Dizziness Lab Data 06/24/22 13:22 06/24/22 13:22 Labs: Lab Results 06/24/22 06/24/22 06/24/22 Range/Units 13:22 13:22 13:22 WBC 7.6 (4.8-10.8) K
[2022-06-24 15:19] VITALS: BP 111/74; PULSE 79; RESP 16; TEMP 36.8; O2SAT 100
--- NOTE | 2022-06-24 15:24 | PC.NURSE ---
On 06/24/22, the student, [taz stevens ], provided care and completed [facility] documentation on this patient. I have reviewed the student's documentation and agree with the findings.
== END 2022-06-24 15:24 | disposition home or self-care (01) ==
PROVIDERS: Emergency Provider Emergency Medicine; PCP Family Medicine
DX: F41.9 Anxiety disorder, unspecified (principal); R00.2 Palpitations; F17.290 Nicotine dependence, other tobacco product, uncomplicated
CPT/HCPCS: 36415; 80053; 83735; 84443; 85025; 93005; 99283; A9270

== ENCOUNTER 2022-10-15 07:52 | Outpatient (CLI) | payer OTHER, MEDICAID, SELFPAY ==
--- NOTE | ~2022-10-15 | US_ITS ---
EXAMINATION: US right upper quadrant DATE: 10/15/2022 08:12 INDICATION: Right upper quadrant pain TECHNIQUE: Multiple grayscale and Doppler ultrasound images of the abdomen were obtained. COMPARISON: None available FINDINGS: The head and body of the pancreas are normal. The pancreatic tail is obscured by bowel gas. The liver is normal with normal echogenicity and echotexture. No surface nodularity. Normal hepatope ander flow in the main portal vein. The gallbladder is normal with no abnormal wall thickening, pericho lecystic fluid or stones. The normal common bile duct measures 3 mm. There was no sonographic Dc sign. IMPRESSION: 1. Normal sonographic study of the gallbladder. Reviewed, dictated and finalized at location B.
== END 2022-10-15 07:53 | disposition home or self-care (01) ==
LOC: CHSIMG 07:54
PROVIDERS: PCP Family Medicine; Visit Provider Family Medicine
DX: R10.11 Right upper quadrant pain (principal)
CPT/HCPCS: 76705

== ENCOUNTER 2023-10-06 21:30 | Emergency (ER) | payer OTHER, SELFPAY ==
[2023-10-06 21:30] VITALS: BP 135/91; PULSE 72; RESP 18; TEMP 36.9; O2SAT 100
--- NOTE | 2023-10-06 21:48 | ED.LOWEXIN ---
HPI - Extremity Injury (Lower) General Chief Complaint: Extremity Injury, Lower Stated Complaint: possible blood clot, pain Lt calf Time Seen by Provider: 10/06/23 21:48 Source: patient and family Mode of arrival: ambulatory Limitations: no limitations History of Present Illness HPI Narrative: This is a 43-year-old female that presents with a small hematoma /bruise to the left lower leg and presents because of concerns of a blood clot, the patient has no calf pain no leg swelling no discrepancy from 1 leg to the other no calf pain with palpation no warmth or tenderness with palpation. Patient denies any recent travel history currently not on control and nonsmoker. No fever chills no shortness of breath. complaint: leg injury Onset (ago): week(s) Severity: mild Related Data Home Medications Medication Instructions Recorded Confirmed sertraline 25 mg tablet 25 mg PO DAILY 10/07/19 10/06/23 Allergies Allergy/AdvReac Type Severity Reaction Status Date / Time No Known Allergies Allergy Verified 06/24/22 12:27 Review of Systems Review of Systems: All systems reviewed & are unremarkable except as noted in HPI and below PMFSH Past Medical History Medical History Chronic back pain history of lumbar injections, L5S1, last injection May 2018 Lymphadenopathy of left cervical region Obesity (BMI 30-39.9) Family History Family History Other No known health problems Social History Social History Smoking status: Current every day smoker Tobacco type: e-cigarettes/vaping Substance use: never Spiritual care concerns: No Exam Const: General: healthy appearing Nutritional Appearance: well nourished Orientation/consciousness: patient oriented x3 Neck: Neck: normal visual inspection Chest: Chest palpation & inspection: normal inspection of the chest Resp: Effort & Inspection: normal respiratory effort Auscultation: clear to auscultation bilaterally Cardio: Rate: regular rate Rhythm: regular rhythm GI: GI Palp: Yes Soft to palpation Auscultation: normal bowel sounds : General: Yes bladder normal to palpation Back/Spine/Pelvis: Back: no CVA tenderness Skin: General skin exam: normal color Rashes: no rashes Wounds: no wounds Neuro: General: patient oriented x3 Extrem: General: normal to inspection, no clubbing, cyanosis or edema and no pedal edema Other: Negative Tahira sign Psych: Mental Status: mental status grossly normal Course Course Emergency Course: after evaluation reassured patient that there is no evidence /no clinical signs of a deep venous thrombosis. Vital Signs Vital signs: Vital Signs Temperature 36.9 C 10/06/23 21:30 Pulse Rate 72 10/06/23 21:30 Respiratory Rate 18 10/06/23 21:30 Blood Pressure 135/91 H 10/06/23 21:30 Pulse Oximetry 100 10/06/23 21:30 Oxygen Delivery Room Air 10/06/23 21:30 Temperature 36.9 C 10/06/23 21:30 Pulse Rate 72 10/06/23 21:30 Respiratory Rate 18 10/06/23 21:30 Blood Pressure 135/91 H 10/06/23 21:30 Pulse Oximetry 100 10/06/23 21:30 Oxygen Delivery Room Air 10/06/23 21:30 Critical Care Time Critical Care Time Critical Care Time: No Discharge Plan Discharge Clinical Impression: Hematoma Patient Disposition: Home, Self-Care Condition: Stable Instructions: Antibiotic Form, Contusion in Adults (ED) Additional Instructions: advised patient to follow with primary if symptoms persist or worsen. Prescriptions: No Action alprazolam [Xanax] 0.5 mg tablet 0.5 mg PO BID PRN (Reason: anxiety) Qty: 10 0RF sertraline 25 mg tablet 25 mg PO DAILY Follow-up/Referrals: Lorne Farr MD [Primary Care Provider] - Time of Disposition: 21:51
== END 2023-10-06 21:59 | disposition home or self-care (01) ==
PROVIDERS: Emergency Provider Emergency Medicine; PCP Family Medicine
DX: S80.12XA Contusion of left lower leg, initial encounter (principal); F17.290 Nicotine dependence, other tobacco product, uncomplicated
CPT/HCPCS: 99282

== ENCOUNTER 2023-12-05 15:21 | Outpatient (CLI) | payer OTHER, SELFPAY ==
--- NOTE | ~2023-12-05 | XR_ITS ---
XR knee LT min 4V Ordering provider: Lorne Farr MD History: . Pain in knee . Comparison: None. FINDINGS: BONES: No acute fracture or dislocation. JOINT SPACES: Normal. SOFT TISSUES: Normal. IMPRESSION: No acute osseous abnormality left knee. Reviewed, dictated and finalized at location A.
== END 2023-12-05 15:22 | disposition home or self-care (01) ==
LOC: CHSIMG 15:22
PROVIDERS: PCP Family Medicine; Visit Provider Family Medicine
DX: M25.562 Pain in left knee (principal)
CPT/HCPCS: 73564

== ENCOUNTER 2024-08-02 12:34 | Outpatient (CLI) | payer OTHER, SELFPAY ==
--- NOTE | ~2024-08-02 | XR_ITS ---
Cervical Spine: AP, lateral, open-mouth views Clinical History: Pain Findings: The normal lordotic curve is maintained. The vertebral bodies and posterior elements appea r intact. The intervertebral disc spaces are well maintained. There is mild facet arthropathy. Pre-v ertebral soft tissues are unremarkable. Impression: Mild facet arthropathy in the cervical spine. Reviewed, dictated and finalized at [facility]. Impression: Mild facet arthropathy in the cervical spine.
--- NOTE | ~2024-08-02 | XR_ITS ---
Thoracic spine: Clinical Indication: Back pain AP and lateral views were performed. No fracture is seen. There is normal alignment of the vertebrae. There is multilevel mild degenerati ve disc narrowing at the upper to mid thoracic spine.. Paravertebral soft tissues appear normal. Impression: Mild degenerative disc narrowing through the upper to mid thoracic spine. Reviewed, dictated and finalized at location . Impression: Mild degenerative disc narrowing through the upper to mid thoracic spine.
--- NOTE | ~2024-08-02 | XR_ITS ---
Lumbosacral Spine: AP and lateral views Clinical History: Pain Findings: The normal lordotic curve is maintained. The vertebral bodies and posterior elements are i ntact. The intervertebral disc spaces are preserved. The sacroiliac joints are normally outlined. Impression: No significant abnormality. Reviewed, dictated and finalized at [facility]. Impression: No significant abnormality.
--- OUTSIDE RECORDS SUMMARY | 2024-08-02 12:57 | XMS_ITS | Clinical Summary ---
Author Organization [facility] Address [address] [place] [address] Care Team Providers Care Research Lab Assistant Name Role Phone Lorne Farr MD Primary Care Provider [phone] Debbie Winters MD Unavailable Unavailabl e Allergies No known active allergies Medications sertraline (ZOLOFT) 25 MG tablet Take 25 mg by mouth daily. Active cyclobenzaprine (FLEXERIL) 10 MG tablet Take 10 mg by mouth 3 (three) times daily as needed for Muscle Spasms. Active Active Problems No known active problems Family History Medical History Relation Comments Fibromyalgia Sister Uterine Cancer Sister Relation Status Comments Sister Social History Tobacco Use Types Packs/Day Years Used Date Smoking Tobacco: Former Cigarettes Q uit: 2020 Smokeless Tobacco: Current Tobacco Cessation:Ready to Q uit: Not Asked; Counseling Given: Not Answered Alcohol Use Standard Drinks/Week Comments Not Currently 0 (1 standard drink = 0.6 oz pur e alcohol) Comments Unknown Sex and Gender Information Value Date Recorded Sex Assigned at Not on file Legal Sex Female 8:26 PM CDT Gender Identity Not on file Sexual Orientation Not on file Last Filed Vital Signs Vital Sign Reading Time Taken Comments Blood Pressure 124/88 07/01/2022 12:16 PM ASSISTANT FOOTBALL COACH Pulse 86 07/01/2022 12:15 PM ASSISTANT FOOTBALL COACH Temperature - - Respiratory Rate 07/01/2022 12:1 5 PM ASSISTANT FOOTBALL COACH Oxygen Saturation 98% 07/01/2022 12: 15 PM ASSISTANT FOOTBALL COACH Inhaled Oxygen Concentration - - Weight 76.6 kg (168 lb 12.8 oz) 023 12:15 PM ASSISTANT FOOTBALL COACH Height 177.8 cm (5' 10 ) 07/01/2022 12: 15 PM ASSISTANT FOOTBALL COACH Body Mass Index 24.22 07/01/2022 12:15 PM ASSISTANT FOOTBALL COACH Plan of Treatment Health Maintenance Due Date Last Done Comments Cervical Cancer Screening Pa p Smear (Age 30 to 64) Every 3 Years 1982 Annual Physical 1985 Hepatitis C 2000 DTaP, Tdap and Td Vaccines ( 1 - Tdap) 2001 Hepatitis B Vaccines (1 of 3 - 19+ 3-dose series) 2001 Cervical Cancer Screening Pa p with HPV Testing (Age 30 to 64) Every 5 Years 2012 Cervical Cancer Screening with HPV 2012 Mammogram Screening 2022 COVID-19 Vaccine (2023-2 5 season) 2024 Influenza Adult (#1) 2024 HPV Vaccines Aged Out No longer eligi ble based on patient's age to complete this topic Meningococcal B Vaccine Aged Out No l onger eligible based on patient's age to complete this topic Meningococcal Vaccine Aged Out No hetal miguelito eligible based on patient's age to complete this topic Pneumococcal Vaccine: Pediat rics (0 to 5 Years) and At-Risk Patients (6 to 64 Years) Aged Out No longer eligible b ased on patient's age to complete this topic RSV Immunizations Under 20 Months Aged Out No longer eligible based on patient's age to complete this topic Care Teams Research Lab Assistant Relationship Specialty Start Date End Date Lorne Farr MD [address], [place] [id number] PCP - General FAMILY PRACTICE 06/29/22 Debbie Winters MD [address] [place] [address] [place] [employer] CARDIOVASCULAR DISEASE 06/29/22
--- OUTSIDE RECORDS SUMMARY | 2024-08-02 12:57 | XMS_ITS ---
Author Organization Unknown Address [address] [place] [phone] Phone Care Team Providers Care Director Hr Communications Name Role Phone SHERYL MARTIN Attending Unavailable CHRIS SIMS Primary Unavailable Results TSH - Collect Date/Time: 04/2024 14:41 [facility] ID: [id number] [address] [place] [address], [phone] LOINC: 56077-3 Test Value Unit Reference Range Code Code System Flag TSH. 0.842 uIU/L L=0.470 H=4.680 03861-0 LOINC COMPREHENSIVE METABOLIC PANE L - Collect Date/Time: 05/27/2023 14:41 [facility] ID: [id number] [address] [place] [address], [phone] LOINC: 49815-2 Test Value Unit Reference Range Code Code System Flag FASTING UNKNOWN BUN 7 mg/dL L=7 H=20 3094-0 LOINC CREATININE 0.80 mg/dL L=0.52 H=1.04 2160-0 LOINC GLUCOSE 84 mg/dL L=74 H=106 2345-7 LOINC SODIUM 142 mmol/L L=132 H=144 2951-2 LOINC POTASSIUM 3.8 mmol/L L=3.5 H=5.1 2823-3 LOINC CHLORIDE 108 mmol/L L=98 H=107 2075-0 LOINC H CO2 26.0 mmol/L L=22.0 H=30.0 2028-9 LOINC ANION GAP 12 L=10 H=20 73509-8 LOINC OSMOLALITY 291 mOs/kG L=280 H=296 86943-5 LOINC BUN/CREAT 8.8 3097-3 LOINC CALCIUM 9.1 mg/dL L=8.3 H=10.5 08064-9 LOINC AST 19 U/L L=15 H=46 1920-8 LOINC ALT 14 U/L L=9 H=72 1742-6 LOINC ALKALINE PHOS 46 U/L L=38 H=126 6768-6 LOINC TOTAL BILI 0.3 mg/dL L=0.2 H=1.3 1975-2 LOINC ALBUMIN 4.6 G/dL L=3.5 H=5.0 1751-7 LOINC TOTAL PROTEIN 7.9 g/L L=6.3 H=8.2 2885-2 LOINC A/G RATIO 1.4 44585-6 LOINC AGE 42 93563-7 LOINC eGFR NON-AFR 84 ml/min eGFR AFR AMER 102 ml/min TROPONIN LEVEL - Collect Primo e/Time: 05/27/2023 14:41 [facility] ID: [id number] [address] [place] [address], [phone] LOINC: 07564-6 Test Value Unit Reference Range Code Code System Flag TROPONIN < 0.012 ng/mL L=0.000 H=0.033 49667-6 LOINC CBC W/ DIFF - Collect Date/T lisa: 05/27/2023 14:41 [facility] ID: [id number] [address] [place] [address], [phone] LOINC: 70225-1 Test Value Unit Reference Range Code Code System Flag WBC 6.6 10^3uL L=4.8 H=10.8 RBC 4.48 10^6uL L=4.20 H=5.40 HEMOGLOBIN 11.5 g/dL L=12.0 H=16.0 718-7 LOINC L HEMATOCRIT 36.8 VOL% L=37.0 H=47.0 4544-3 LOINC L MCV 82.1 fL L=81.0 H=99.0 MCH 25.7 pg L=27.0 H=32.0 L MCHC 31.3 g/dL L=32.0 H=36.0 L PLATELETS 235 10^3uL L=100 H=400 53248-7 LOINC RDW 14.3 % L=11.7 H=15.5 %GRAN 69.3 % L=40.0 H=70.0 23793-2 LOINC %LYMPH 22.6 % L=20.0 H=45.0 736-9 LOINC %MONO 5.0 % L=2.0 H=10.0 63089-4 LOINC %EOS 2.0 % L=0.0 H=6.0 713-8 LOINC %BASO 0.8 % L=0.0 H=3.0 706-2 LOINC #NEUT 4.6 10^3uL L=1.9 H=7.6 09185-3 LOINC #LYMPH 1.5 10^3uL L=0.9 H=4.9 43950-8 LOINC #MONO 0.3 10^3uL L=0.1 H=0.9 73681-7 LOINC #EOS 0.1 10^3uL L=0.0 H=0.6 712-0 LOINC #BASO 0.05 10^3uL L=0.00 H=0.10 31842-6 LOINC #IM GRANS 0.0 10^3uL L=0.0 H=7.0 64248-4 LOINC %IM GRANS 0.3 % L=0.0 H=5.0 58462-4 LOINC %NRB 0.0 L=0.0 H=0.2 07205-1 LOINC #NRB 0.000 L=0.000 H=0.012 30525-6 LOINC MANUAL DIFF NOT INDICATED RBC MORPH NOT INDICATED CRP NON SPECIFIC - Collect D ate/Time: 05/27/2023 14:41 [facility] ID: [id number] [address] [place], [place], [phone] LOINC: 1987-09 Test Value Unit Reference Range Code Code System Flag CRP-NON SPECIFIC < 5.0 mg/L L=0.0 H=10.0 5 LOINC SED RATE - Collect Date/Time : 05/27/2023 14:41 [facility] ID: [id number] [address] [place] [address], [phone] LOINC: Test Value Unit Reference Range Code Code System Flag SED RATE 26 mm/hr L=0 H=20 H MAGNESIUM - Collect Date/[place] e: 05/27/2023 14:41 [facility] ID: [id number] [address] [place] [address], [phone] LOINC: 81214-8 Test Value Unit Reference Range Code Code System Flag MAGNESIUM 2.2 mg/dL L=1.6 H=2.3 15513-4 LOINC T4 FREE - Collect Date/Time: 05/27/2023 14:41 [facility] ID: [id number] [address] [place] [address], [phone] LOINC: 3024-7 Test Value Unit Reference Range Code Code System Flag T4, FREE 1.37 ng/dL L=0.78 H=2.19 3024-7 LOINC URINALYSIS w/Microscopy/C&S if indicated - Collect Date/Time: 05/27/2023 14:35 [facility] ID: [id number] [address] [place] [address], [phone] LOINC: 72556-3 Test Value Unit Reference Range Code Code System Flag UR SOURCE UNKNOWN 28182-6 LOINC COLOR LT YELLOW YELLOW 5778-6 LOINC CLARITY CLEAR CLEAR 86053-7 LOINC SPEC GRAVITY <=1.005 1.000-1.030 5811-5 LOINC PH 6.0 5.0 - 6.5 5803-2 LOINC LEUK EST NEGATIVE NEGATIVE 5799-2 LOINC NITRATE NEGATIVE NEGATIVE PROTEIN NEGATIVE NEGATIVE 5804-0 LOINC GLUCOSE NEGATIVE NEGATIVE 42774-5 LOINC KETONES NEGATIVE NEGATIVE 19518-7 LOINC UROBILINOGEN 0.2 NEGATIVE 5818-0 LOINC BILIRUBIN NEGATIVE NEGATIVE 73740-2 LOINC BLOOD 1+ NEGATIVE 59150-3 LOINC WBC 0-2 0 - 2 48676-1 LOINC RBC 0-2 0 - 2 28862-2 LOINC EPITHELIAL RARE RARE-FEW 46647-4 LOINC BACTERIA NONE SEEN NONE SEEN 00404-2 LOINC MUCUS NONE SEEN NONE SEEN 8247-9 LOINC YEAST NOT PRESENT NOT PRESENT 79289-4 LOINC CASTS NONE SEEN 16011-8 LOINC CRYSTALS NONE SEEN 33843-1 LOINC CULTURE? NO 8251-1 LOINC DIAGNOSIS N/A Social History Type Status Start Date End Date Code Code Syst em Sex Female Hospital Discharge Instructions Should you have any questions prior to discharge, please contact a member of your healthcare team. If you have left the hospital and have any questions, please contact your primary care physician. Reason For Referral No Data Found Allergies and Adverse Reactions Allergy Substance Reaction Severity Start Date Concern Status Co de Code System No Known Drug Allergies Active [id number] SNOMED-CT Plan of Treatment US Echo With Color (30751) 10/07/2022 Encounters Encounter Diagnosis Start Date Code Code Sys tem Panic disorder [episodic paroxysmal anxiety] 4 SNOMED-CT Personal Care Team Section Performer Name Performer Role Active Date Inactive BETHANY Pereira PCP - Primary care physician
== END 2024-08-02 12:35 | disposition home or self-care (01) ==
LOC: CHSIMG 12:36
PROVIDERS: PCP Family Medicine; Visit Provider Family Medicine
DX: M54.2 Cervicalgia (principal); M54.9 Dorsalgia, unspecified
CPT/HCPCS: 72040; 72072; 72100

== ENCOUNTER 2025-03-06 17:08 | Outpatient (CLI) | payer OTHER, SELFPAY ==
[2025-03-06 17:31] LABS: Hematocrit 36.9 % (35.0-49.0); Hemoglobin 11.2 g/dL (12.0-15.0); Immature Granulocyte Percent A 0.3 % (0.0-0.0); Lymphocytes Absolute Auto 1.97 K/mm3 (1.10-4.50); Mean Corpuscular HGB Conc 30.4 g/dL (32-36); Mean Corpuscular Hemoglobin 25.6 pg (27.0-31.0); Mean Corpuscular Volume 84.2 fL (78.0-102.0); Nucleated Red Blood Cells Absolute Auto 0.00 K/mm3 (0.00-0.00); Nucleated Red Blood Cells Perc 0.0 % (0-0.0); Platelet Count Result 250 K/mm3 (150-420); Red Blood Count 4.38 M/mm3 (4.20-5.40); White Blood Count 5.7 K/mm3 (4.8-10.8)
[2025-03-06 18:02] LABS: Alanine Aminotransferase 14 U/L (6-35); Albumin Level 4.7 g/dL (3.5-5.1); Alkaline Phosphatase 40 U/L (38-126); Anion Gap 10 mmol/L (4-12); Aspartate Amino Transferase 19 U/L (14-36); Bilirubin,Total 0.5 mg/dL (0.2-1.3); Blood Urea Nitrogen 9 mg/dL (7-17); Calcium 9.5 mg/dL (8.4-10.2); Carbon Dioxide 23 mmol/L (22-30); Chloride 107 mmol/L (98-107); Creatine Kinase 50 U/L (30-135); Estimated Glomerular Filt Rate > 60; Glucose 122 mg/dL (65-110); Magnesium 2.2 mg/dL (1.6-2.3); Osmolality Calculated 289 mOsm/kg (285-295); Potassium 3.9 mmol/L (3.4-5.0); Sodium 140 mmol/L (137-145); Total Protein 7.9 g/dL (6.3-8.2)
[2025-03-06 18:13] LABS: Troponin I < 0.012 ng/mL (0.000-0.034)
[2025-03-06 18:32] LABS: Thyroid Stimulating Hormone 1.130 uIU/mL (0.465-4.680)
[2025-03-06 18:36] LABS: Ferritin 5.26 ng/mL (6.24-137)
[2025-03-06 18:38] LABS: Iron 36 ug/dL (37-170)
[2025-03-06 18:47] LABS: Percent Iron Saturation 10 % (20-50)
--- OUTSIDE RECORDS SUMMARY | 2025-03-06 20:20 | XMS_ITS | Clinical Summary ---
Author Organization [facility] Address [address] [place] [address] Care Team Providers Care Security Associate Name Role Phone Lorne Farr MD Primary Care Provider [phone] Debbie Winters MD Unavailable Unavailabl e Allergies [...] Comments Blood Pressure 124/88 07/01/2022 12:16 PM [employer] Pulse 86 07/01/2022 12:15 PM [employer] Temperature - - Respiratory Rate 07/01/2022 12:1 5 PM [employer] Oxygen Saturation 98% 07/01/2022 12: 15 PM [employer] Inhaled Oxygen Concentration - - Weight 76.6 kg (168 lb 12.8 oz) 023 12:15 PM [employer] Height 177.8 cm (5' 10) 07/01/2022 12: 15 PM [employer] Body Mass Index 24.22 07/01/2022 12:15 PM [employer] Plan of Treatment Health Maintenance Due Date Last Done Comments Cervical Cancer Screening Pa p Smear (Age 30 to 64) Every 3 Years 1982 Annual Physical 1985 Hepatitis C 2000 DTaP, Tdap and Td Vaccines ( 1 - Tdap) 2001 Hepatitis B Vaccines (1 of 3 - 19+ 3-dose series) 2001 HPV Vaccines (1 - 3-dose SCD M series) 2009 Cervical Cancer Screening Pa p with HPV Testing (Age 30 to 64) Every 5 Years 2012 Cervical Cancer Screening with HPV 2012 Mammogram Screening 2022 COVID-19 Vaccine (2024-2 6 season) 2025 Influenza Adult (#1) 2025 Hepatitis A Vaccines Aged Out No long er eligible based on patient's age to complete this topic Meningococcal B Vaccine Aged Out No l onger eligible based on patient's age to complete this topic Meningococcal Vaccine Aged Out No hetal miguelito eligible based on patient's age to complete this topic Pneumococcal Vaccine: Pediat rics (0 to 5 Years) and At-Risk Patients (6 to 49 Years) Aged Out No longer eligible b ased on patient's age to complete this topic RSV Immunizations Under 20 Months Aged Out No longer eligible based on patient's age to complete this topic Care Teams Security Associate Relationship Specialty Start Date End Date Loren Farr MD [address] [place] [address] PCP - General FAMILY PRACTICE 06/29/22 Debbie Winters MD [address] [place] [address] [employer] CARDIOVASCULAR DISEASE 06/29/22
== END 2025-03-06 17:09 | disposition home or self-care (01) ==
LOC: CHSLAB 17:10
PROVIDERS: PCP Family Medicine; Visit Provider Family Medicine
DX: D50.9 Iron deficiency anemia, unspecified (principal); R00.2 Palpitations; R07.9 Chest pain, unspecified
CPT/HCPCS: 36415; 80053; 82550; 82553; 82728; 83540; 83550; 83735; 84443; 84484; 85025